=== PATIENT | female | born 1965 | race Caucasian/White ===

== ENCOUNTER → 2016-07-23 | Outpatient (CLI) | payer BC ==
[~2016-07-23] MED LIST: FISH OIL 1,0001 CA2 PO; FLUOXETINE HCL20 M1 PO; LORAZEPAM0.5 MG PO; MULTI VITAMIN1 EACH PO
--- NOTE | ~2016-07-23 | MY11 ---
[facility] A Service of [facility] RADIOLOGY TEXT RESULTS PATIENT: CINTIA FIELDS LOCATION: [facility] : 61 UNIT #: [id number] AGE: [address]: Bj Enriquez MD SEX: F ORDER DR: [id number] [facility] [address] [place], [place] [address] [id number] O MR#: [id number] Acc #: [id number] NAME: CINTIA FIELDS : 1965 SEX: F STUDY DATE/TIME: 07/23/2016 16:00 UNIT: [facility] ROOM: STUDY DESCRIPTION: MY Mammogram Screening Dig Silver[facility] Attending Physician: Bj Enriquez M.D. Ordering Physician: Bj Enriquez M.D. Primary Care Physician: Bj Enriquez M.D. MEDICAL IMAGING REPORT This report is preliminary unless electronic signature is present EXAM Bilateral Digital Screening Mammogram with CAD INDICATION Breast cancer screening. 50-year-old asymptomatic female who reports a mother with breast cancer. COMPARISON 08/27/2014, 06/22/2013, 05/11/2012, 06/26/2010, 06/17/2009, 05/08/2008, 05/06/2007, 05/04/2006 FINDINGS There are scattered fibroglandular tissues. No suspicious findings are present. IMPRESSION No mammographic evidence of malignancy. Annual screening mammography and clinical breast exam are recommended. A result letter will be sent to the patient. Patients over the age of 40 are entered into a reminder system with target due date for the next mammogram. BIRADS: 1 Negative Dictated by... Farooq Florez M.D. THIS IS AN ELECTRONICALLY VERIFIED REPORT Farooq Florez M.D. at 07/27/2016 5:46 PM LUCINDA/malissa [facility] A Service of [facility] RADIOLOGY TEXT RESULTS PATIENT: CINTIA FIELDS LOCATION: [facility] : 61 UNIT #: [id number] AGE: [address]: Bj Enriquez MD SEX: F ORDER DR: TD: 07/23/2016 17:56 JOB #: [id number] MEDICAL IMAGING REPORT Page 1 of 1 COPY
== END | disposition home or self-care (01) ==
LOC: CWCC 15:50
DX: Z12.31 Encounter for screening mammogram for malignant neoplasm of breast (principal); Z80.3 Family history of malignant neoplasm of breast
CPT/HCPCS: G0202